=== PATIENT | female | born 1940 | race Caucasian/White ===

== ENCOUNTER 2018-08-09 22:56 | Inpatient (IN) | payer MEDICARE, OTHER ==
[2018-08-10] MEDS ORDERED: CYANOCOBALAMIN 500 MCG TAB PO (01:00)
[2018-08-10] MEDS: ACETYLCYSTEINE 20% 4 ML VIAL NEB ×3 (01:00→21:10)
[2018-08-10] MEDS ORDERED: DIGOXIN 0.125 MG TAB PO (01:00)
[2018-08-10] MEDS: ALPRAZOLAM 0.25 MG TAB PO ×2 (01:57→21:48)
[2018-08-10] MEDS: ACETAMINOPHEN 325 MG TAB PO ×2 (02:00→23:14)
[2018-08-10] MEDS: ALBUTEROL/IPRATROPIUM (NEB) 3 ML AMP HHN ×5 (03:35→21:10)
[2018-08-10] MEDS ORDERED: CEPASTAT LOZENGE MT (04:00)
[2018-08-10] MEDS ORDERED: MICONAZOLE 2% 30 GM CR TOP (04:00)
[2018-08-10] MEDS ORDERED: METOCLOPRAMIDE 10 MG INJ IV (04:00)
[2018-08-10] MEDS ORDERED: DIPHENHYDRAMINE 50 MG CAP PO (04:30)
[2018-08-10] MEDS ORDERED: DILTIAZEM 30 MG TAB PO ×2 (04:30→06:00)
[2018-08-10] MEDS: ARTIFICIAL TEARS 15 ML OPH BOTH EYES ×3 (06:39→20:14)
[2018-08-10] MEDS: PANTOPRAZOLE (EC) 40 MG TAB PO (06:40)
[2018-08-10] MEDS: INSULIN ASPART [NOVOLOG] 3 ML PEN SC ×4 (07:35→20:13)
[2018-08-10] MEDS ORDERED: DEXTROSE 50% 50 ML SYRINGE IV (08:00)
[2018-08-10] MEDS ORDERED: GLUCAGON 1 MG INJ IM (08:00)
[2018-08-10 08:02] LABS: ADD UMIC YES; UR ASCORBIC ACID 40 mg/dL (NEGATIVE); UR BACTERIA FEW /HPF (NONE SEEN); UR BILIRUBIN (Dip) NEGATIVE (NEGATIVE); UR BLOOD (Dip) NEGATIVE (NEGATIVE); UR CLARITY CLEAR (CLEAR); UR COLOR YELLOW (YELLOW); UR GLUCOSE (Dip) 1+ mg/dL (NEGATIVE); UR KETONES (Dip) NEGATIVE (NEGATIVE); UR LEUKOCYTE ESTERASE (Dip) TRACE Leu/ul (NEGATIVE); UR NITRITE (Dip) NEGATIVE (NEGATIVE); UR RBC 7 /HPF (0-5); UR SPECIFIC GRAVITY (Dip) 1.013 (1.003-1.030); UR SQUAMOUS EPITHELIAL CELL FEW /HPF (FEW); UR TOTAL PROTEIN (Dip) NEGATIVE (NEGATIVE); UR UROBILINOGEN (Dip) NEGATIVE (NEGATIVE); UR WBC 4 /HPF (0-5)
[2018-08-10] MEDS ORDERED: DOCUSATE SODIUM 100 MG CAP PO (09:00)
[2018-08-10] MEDS: MICONAZOLE 2% 30 GM CR TOP ×2 (09:00→22:29)
[2018-08-10] MEDS: LACTULOSE 30ML CUP PO (09:00)
[2018-08-10] MEDS ORDERED: DULOXETINE 20 MG CAP DR PO (09:00)
[2018-08-10] MEDS: ROFLUMILAST 500 MCG TABLET PO (09:00)
[2018-08-10] MEDS ORDERED: DILTIAZEM 90 MG TAB PO (09:00)
[2018-08-10] MEDS: CYANOCOBALAMIN 500 MCG TAB PO (09:00)
[2018-08-10 09:04] LABS: WHITE BLOOD COUNT 8.8 10^3/ul (4.8-10.8)
[2018-08-10 09:04] LABS: ABNORMAL IP MESSAGE 1; HEMATOCRIT 30.5 % (37.0-47.0); HEMOGLOBIN 10.4 g/dl (12.0-16.0); MEAN CORPUSCULAR HEMOGLOBIN 27.4 pg (29.0-33.0); MEAN CORPUSCULAR HGB CONC 34.1 g/dl (32.0-37.0); MEAN CORPUSCULAR VOLUME 80.5 fl (82.0-101.0); MEAN PLATELET VOLUME 9.5 fl (7.4-10.4); PLATELET COUNT 144 10^3/UL (140-415); RED BLOOD COUNT 3.79 10^6/ul (4.20-5.40); RED CELL DISTRIBUTION WIDTH 25.2 % (11.5-14.5)
[2018-08-10 09:11] LABS: ADD MAN DIFF? YES; POSITIVE DIFF @See below
[2018-08-10] MEDS: GLUCOSE GEL 15 GRAM TUBE PO (09:18)
[2018-08-10 09:29] LABS: ALANINE AMINOTRANSFERASE 48 IU/L (13-69); ALBUMIN/GLOBULIN RATIO 1.11; ALKALINE PHOSPHATASE 49 IU/L (42-121); ANION GAP 8 (5-13); ASPARTATE AMINO TRANSFERASE 24 IU/L (15-46); BILIRUBIN,INDIRECT 0.1 mg/dl (0-1.1); BILIRUBIN,TOTAL 0.1 mg/dl (0.2-1.3); BLOOD UREA NITROGEN 43 mg/dl (7-20); CALCIUM 9.5 mg/dl (8.4-10.2); CARBON DIOXIDE 29 mmol/L (21-31); CHLORIDE 96 mmol/L (97-110); CREATININE 0.96 mg/dl (0.44-1.00); POTASSIUM 4.4 mmol/L (3.5-5.1); SODIUM 133 mmol/L (135-144); TOTAL PROTEIN 5.7 g/dl (6.1-8.1)
[2018-08-10 09:36] LABS: GLUCOSE 49 mg/dl (70-220)
[2018-08-10 09:56] LABS: ANISOCYTOSIS 2+ (0-0); BAND NEUTROPHILS #M 0.3 10^3/ul (0.0-0.6); BAND NEUTROPHILS % (M) 4 % (0-4); BURR CELLS 1+ (0-0); ERYTHROBLAST% (NRBC) (M) 2 % (0-0); LYMPHOCYTES #M 1.2 10^3/ul (0.8-2.9); LYMPHOCYTES % (M) 14 % (15-51); METAMYELOCYTES %M 1 % (0-0); MICROCYTOSIS 2+ (0-0); MONOCYTE #M 0.2 10^3/ul (0.3-0.9); MONOCYTES % (M) 3 % (0-11); MYELOCYTES #M 0.2 10^3/ul (0.0-0.0); MYELOCYTES % (M) 3 % (0-0); PLATELET ESTIMATE NORMAL; POIKILOCYTOSIS 2+ (0-0); POLYCHROMASIA 1+ (0-0); REACTIVE LYMPHOCYTES #M 0.1 10^3/ul (0.0-0.0); REACTIVE LYMPHOCYTES% (M) 2 % (0-0); SEG NEUT #M 6.5 10^3/ul (1.6-7.5); SEGMENTED NEUTROPHILS (M) % 73 % (39-77); SMUDGE%M 8 % (0-0)
[2018-08-10] MEDS: METOPROLOL 25 MG TAB PO ×2 (11:44→20:19)
[2018-08-10] MEDS: PRIMIDONE 50 MG TAB PO ×3 (11:45→20:17)
[2018-08-10] MEDS: CHOLECALCIFEROL 1,000 UNIT TAB PO (11:45)
[2018-08-10] MEDS: DOCUSATE SODIUM 100 MG CAP PO ×2 (11:46→20:17)
[2018-08-10] MEDS: CHOLECALCIFEROL 2,000 UNIT CAP PO (11:46)
[2018-08-10] MEDS: GUAIFENESIN LA 600 MG TABSR PO ×2 (11:47→20:14)
[2018-08-10] MEDS: SACUBITRIL/VALSARTAN (24mg-26mg) TABLET PO ×2 (11:47→20:17)
[2018-08-10] MEDS: SPIRONOLACTONE 50 MG TAB PO (11:47)
[2018-08-10] MEDS: DULOXETINE 20 MG CAP DR PO ×2 (11:48→20:25)
[2018-08-10] MEDS: predniSONE 10 MG TAB PO (11:48)
[2018-08-10] MEDS: DIGOXIN 0.125 MG TAB PO (14:19)
[2018-08-10] MEDS: ACETYLCYSTEINE 600 MG CAP PO ×2 (14:22→20:17)
[2018-08-10] MEDS: RIVAROXABAN 15 MG TABLET PO (17:31)
[2018-08-10] MEDS: DILTIAZEM (CD) 180 MG CAP PO ×2 (17:31→21:48)
[2018-08-10] MEDS: INSULIN GLARGINE [LANTus] (100 UNITS/ML) SYG SC (20:11)
[2018-08-10] MEDS: ATORVASTATIN 10 MG TAB PO (20:31)
[2018-08-10] MEDS: DONEPEZIL 10 MG TAB PO (20:31)
[2018-08-10] MEDS: CALCIUM CARBONATE 500 MG CHEW TAB PO (20:31)
[2018-08-10] MEDS ORDERED: DONEPEZIL 10 MG TAB PO (21:00)
[2018-08-10] MEDS: ZOLPIDEM 5 MG TAB PO (23:13)
[2018-08-11] MEDS: ACCU-CHEK XX ×2 (02:13→02:14)
[2018-08-11] MEDS ORDERED: PENDING SANTYL ORDER FOR WOUND CARE XX (03:30)
[2018-08-11] MEDS: PANTOPRAZOLE (EC) 40 MG TAB PO (05:59)
[2018-08-11] MEDS: ARTIFICIAL TEARS 15 ML OPH BOTH EYES ×3 (05:59→21:14)
[2018-08-11] MEDS: INSULIN ASPART [NOVOLOG] 3 ML PEN SC ×4 (07:35→21:11)
[2018-08-11 08:01] LABS: FREE T3 0.99 pg/ml (2.77-5.27)
[2018-08-11 08:02] LABS: FREE T4 (FREE THYROXINE) < 0.07 ng/dl (0.78-2.44)
[2018-08-11] MEDS: ACETYLCYSTEINE 20% 4 ML VIAL NEB ×2 (08:45→19:48)
[2018-08-11] MEDS: ALBUTEROL/IPRATROPIUM (NEB) 3 ML AMP HHN ×4 (08:53→19:47)
[2018-08-11] MEDS: LACTULOSE 30ML CUP PO (09:00)
[2018-08-11] MEDS: DOCUSATE SODIUM 100 MG CAP PO ×2 (09:00→21:16)
[2018-08-11] MEDS: PRIMIDONE 50 MG TAB PO ×3 (09:43→21:15)
[2018-08-11] MEDS: ACETYLCYSTEINE 600 MG CAP PO ×2 (09:43→21:15)
[2018-08-11] MEDS: SACUBITRIL/VALSARTAN (24mg-26mg) TABLET PO ×2 (09:43→21:15)
[2018-08-11] MEDS: SODIUM CHLORIDE 1 GM TAB PO (09:43)
[2018-08-11] MEDS: GUAIFENESIN LA 600 MG TABSR PO ×2 (09:44→21:17)
[2018-08-11] MEDS: predniSONE 10 MG TAB PO (09:44)
[2018-08-11] MEDS: DILTIAZEM (CD) 180 MG CAP PO ×2 (09:44→21:16)
[2018-08-11] MEDS: DULOXETINE 20 MG CAP DR PO ×2 (09:45→21:15)
[2018-08-11] MEDS: CHOLECALCIFEROL 1,000 UNIT TAB PO (09:45)
[2018-08-11] MEDS: CHOLECALCIFEROL 2,000 UNIT CAP PO (09:45)
[2018-08-11] MEDS: ROFLUMILAST 500 MCG TABLET PO (09:46)
[2018-08-11] MEDS: METOPROLOL 25 MG TAB PO ×2 (09:47→21:16)
[2018-08-11] MEDS: SPIRONOLACTONE 50 MG TAB PO (09:47)
[2018-08-11] MEDS: MICONAZOLE 2% 30 GM CR TOP ×2 (09:49→21:17)
[2018-08-11] MEDS: DIGOXIN 0.125 MG TAB PO (14:17)
[2018-08-11] MEDS: RIVAROXABAN 15 MG TABLET PO (17:45)
[2018-08-11] MEDS: INSULIN GLARGINE [LANTus] (100 UNITS/ML) SYG SC (21:10)
[2018-08-11] MEDS: CALCIUM CARBONATE 500 MG CHEW TAB PO (21:14)
[2018-08-11] MEDS: ATORVASTATIN 10 MG TAB PO (21:14)
[2018-08-11] MEDS: DONEPEZIL 10 MG TAB PO (21:15)
[2018-08-11] MEDS: MELATONIN 3 MG TABLET PO (21:17)
[2018-08-11] MEDS: ALPRAZOLAM 0.25 MG TAB PO (22:47)
[2018-08-11] MEDS: morphine LIQ (10 MG/5 ML) CUP PO (23:49)
[2018-08-12] MEDS: ACCU-CHEK XX ×2 (02:00)
[2018-08-12] MEDS: ARTIFICIAL TEARS 15 ML OPH BOTH EYES ×3 (07:27→21:45)
[2018-08-12] MEDS: LEVOTHYROXINE 50 MCG TAB PO (07:28)
[2018-08-12] MEDS: PANTOPRAZOLE (EC) 40 MG TAB PO (07:28)
[2018-08-12] MEDS: INSULIN ASPART [NOVOLOG] 3 ML PEN SC ×4 (07:35→21:00)
[2018-08-12] MEDS: ACETYLCYSTEINE 20% 4 ML VIAL NEB ×2 (08:25→20:00)
[2018-08-12] MEDS: ALBUTEROL/IPRATROPIUM (NEB) 3 ML AMP HHN ×4 (08:26→20:00)
[2018-08-12] MEDS: DILTIAZEM (CD) 180 MG CAP PO ×2 (09:00→21:47)
[2018-08-12] MEDS: GLUCOSE GEL 15 GRAM TUBE BUCCAL (09:40)
[2018-08-12] MEDS: PRIMIDONE 50 MG TAB PO ×3 (09:43→21:46)
[2018-08-12] MEDS: ROFLUMILAST 500 MCG TABLET PO (09:44)
[2018-08-12] MEDS: DOCUSATE SODIUM 100 MG CAP PO ×2 (09:44→21:46)
[2018-08-12] MEDS: predniSONE 20 MG TAB PO (09:46)
[2018-08-12] MEDS: CHOLECALCIFEROL 2,000 UNIT CAP PO (09:47)
[2018-08-12] MEDS: CHOLECALCIFEROL 1,000 UNIT TAB PO (09:47)
[2018-08-12] MEDS: LACTULOSE 30ML CUP PO (09:49)
[2018-08-12] MEDS: GUAIFENESIN LA 600 MG TABSR PO ×2 (09:49→21:46)
[2018-08-12] MEDS: SACUBITRIL/VALSARTAN (24mg-26mg) TABLET PO ×2 (09:50→21:46)
[2018-08-12] MEDS: SPIRONOLACTONE 50 MG TAB PO (09:50)
[2018-08-12] MEDS: ACETYLCYSTEINE 600 MG CAP PO ×2 (09:51→21:46)
[2018-08-12] MEDS: MICONAZOLE 2% 30 GM CR TOP ×2 (09:53→22:03)
[2018-08-12] MEDS: METOPROLOL 25 MG TAB PO ×2 (09:57→21:47)
[2018-08-12] MEDS: DULOXETINE 20 MG CAP DR PO ×2 (09:58→21:46)
[2018-08-12] MEDS: CYANOCOBALAMIN 500 MCG TAB PO (11:15)
[2018-08-12] MEDS: morphine LIQ (10 MG/5 ML) CUP PO (13:08)
[2018-08-12] MEDS: DIGOXIN 0.125 MG TAB PO (13:10)
[2018-08-12] MEDS: FUROSEMIDE 20 MG INJ IV (15:35)
[2018-08-12] MEDS: RIVAROXABAN 15 MG TABLET PO (18:08)
[2018-08-12] MEDS: MELATONIN 3 MG TABLET PO (21:00)
[2018-08-12] MEDS: INSULIN GLARGINE [LANTus] (100 UNITS/ML) SYG SC (21:43)
[2018-08-12] MEDS: ATORVASTATIN 10 MG TAB PO (21:46)
[2018-08-12] MEDS: DONEPEZIL 10 MG TAB PO (21:46)
[2018-08-12] MEDS: CALCIUM CARBONATE 500 MG CHEW TAB PO (21:46)
[2018-08-12] MEDS: ALPRAZOLAM 0.25 MG TAB PO (22:01)
[2018-08-13] MEDS: ACCU-CHEK XX ×2 (02:00)
[2018-08-13] MEDS: morphine LIQ (10 MG/5 ML) CUP PO ×2 (04:18→20:27)
[2018-08-13] MEDS: LEVOTHYROXINE 50 MCG TAB PO (06:29)
[2018-08-13] MEDS: ARTIFICIAL TEARS 15 ML OPH BOTH EYES ×3 (06:29→21:52)
[2018-08-13] MEDS: PANTOPRAZOLE (EC) 40 MG TAB PO (06:29)
[2018-08-13 07:21] LABS: WHITE BLOOD COUNT 11.5 10^3/ul (4.8-10.8)
[2018-08-13 07:21] LABS: ABNORMAL IP MESSAGE 1; HEMATOCRIT 32.8 % (37.0-47.0); HEMOGLOBIN 10.5 g/dl (12.0-16.0); MEAN CORPUSCULAR HEMOGLOBIN 26.8 pg (29.0-33.0); MEAN CORPUSCULAR VOLUME 83.7 fl (82.0-101.0); MEAN PLATELET VOLUME 9.1 fl (7.4-10.4); PLATELET COUNT 134 10^3/UL (140-415); RED BLOOD COUNT 3.92 10^6/ul (4.20-5.40); RED CELL DISTRIBUTION WIDTH 25.4 % (11.5-14.5)
[2018-08-13 07:23] LABS: POSITIVE DIFF @See below
[2018-08-13 07:24] LABS: ADD MAN DIFF? YES
[2018-08-13] MEDS: INSULIN ASPART [NOVOLOG] 3 ML PEN SC ×4 (07:35→20:42)
[2018-08-13 07:43] LABS: ANION GAP 3 (5-13); BLOOD UREA NITROGEN 31 mg/dl (7-20); CALCIUM 8.5 mg/dl (8.4-10.2); CARBON DIOXIDE 32 mmol/L (21-31); CHLORIDE 101 mmol/L (97-110); CREATININE 0.79 mg/dl (0.44-1.00); POTASSIUM 5.2 mmol/L (3.5-5.1); SODIUM 136 mmol/L (135-144)
[2018-08-13 07:48] LABS: GLUCOSE 48 mg/dl (70-220)
[2018-08-13 07:55] LABS: MAGNESIUM 2.3 mg/dl (1.7-2.5)
[2018-08-13] MEDS: GLUCOSE GEL 15 GRAM TUBE PO (08:52)
[2018-08-13] MEDS: ACETYLCYSTEINE 20% 4 ML VIAL NEB (08:59)
[2018-08-13] MEDS: ALBUTEROL/IPRATROPIUM (NEB) 3 ML AMP HHN ×4 (08:59→20:40)
[2018-08-13] MEDS: SODIUM CHLORIDE 1 GM TAB PO (09:00)
[2018-08-13] MEDS: PRIMIDONE 50 MG TAB PO ×3 (09:00→22:48)
[2018-08-13] MEDS: DOCUSATE SODIUM 100 MG CAP PO ×2 (09:35→20:28)
[2018-08-13] MEDS: LACTULOSE 30ML CUP PO (09:35)
[2018-08-13] MEDS: DILTIAZEM (CD) 180 MG CAP PO ×2 (09:36→20:29)
[2018-08-13] MEDS: ACETYLCYSTEINE 600 MG CAP PO (09:36)
[2018-08-13] MEDS: METOPROLOL 25 MG TAB PO ×2 (09:36→20:30)
[2018-08-13] MEDS: CHOLECALCIFEROL 1,000 UNIT TAB PO (09:37)
[2018-08-13] MEDS: ROFLUMILAST 500 MCG TABLET PO (09:38)
[2018-08-13] MEDS: GUAIFENESIN LA 600 MG TABSR PO ×2 (09:38→20:28)
[2018-08-13] MEDS: SACUBITRIL/VALSARTAN (24mg-26mg) TABLET PO ×2 (09:39→20:27)
[2018-08-13] MEDS: DULOXETINE 20 MG CAP DR PO ×2 (09:39→20:28)
[2018-08-13] MEDS: SPIRONOLACTONE 50 MG TAB PO (09:39)
[2018-08-13] MEDS: predniSONE 20 MG TAB PO (09:39)
[2018-08-13] MEDS: CHOLECALCIFEROL 2,000 UNIT CAP PO (09:39)
[2018-08-13] MEDS: MICONAZOLE 2% 30 GM CR TOP ×2 (09:41→21:52)
[2018-08-13] MEDS: DEXTROSE 50% 50 ML SYRINGE IV (11:18)
[2018-08-13] MEDS: FUROSEMIDE 20 MG TAB PO (12:34)
[2018-08-13] MEDS: MUPIROCIN 2% 22 GM OINT TOP ×2 (12:35→21:51)
[2018-08-13] MEDS: DIGOXIN 0.125 MG TAB PO (12:35)
[2018-08-13] MEDS: METHYLPREDNISOLONE 40 MG INJ IV ×2 (16:30→22:48)
[2018-08-13 17:49] LABS: ADD UMIC NO; UR ASCORBIC ACID 40 mg/dL (NEGATIVE); UR BILIRUBIN (Dip) NEGATIVE (NEGATIVE); UR BLOOD (Dip) NEGATIVE (NEGATIVE); UR CLARITY CLEAR (CLEAR); UR COLOR YELLOW (YELLOW); UR GLUCOSE (Dip) NEGATIVE (NEGATIVE); UR KETONES (Dip) NEGATIVE (NEGATIVE); UR LEUKOCYTE ESTERASE (Dip) NEGATIVE Leu/ul (NEGATIVE); UR NITRITE (Dip) NEGATIVE (NEGATIVE); UR SPECIFIC GRAVITY (Dip) 1.011 (1.003-1.030); UR TOTAL PROTEIN (Dip) NEGATIVE (NEGATIVE); UR UROBILINOGEN (Dip) NEGATIVE (NEGATIVE)
[2018-08-13] MEDS: RIVAROXABAN 15 MG TABLET PO (17:50)
[2018-08-13] MEDS: AL HYDROX/MG HYDROX/SIMETH 30 ML CUP PO (18:25)
[2018-08-13] MEDS: CALCIUM CARBONATE 500 MG CHEW TAB PO (20:27)
[2018-08-13] MEDS: DONEPEZIL 10 MG TAB PO (20:28)
[2018-08-13] MEDS: MELATONIN 3 MG TABLET PO (20:28)
[2018-08-13] MEDS: ATORVASTATIN 10 MG TAB PO (20:29)
[2018-08-13] MEDS: INSULIN GLARGINE [LANTus] (100 UNITS/ML) SYG SC (20:42)
[2018-08-13] MEDS: ALPRAZOLAM 0.25 MG TAB PO (22:37)
[2018-08-14] MEDS: ACCU-CHEK XX ×2 (01:36→02:00)
[2018-08-14] MEDS: ARTIFICIAL TEARS 15 ML OPH BOTH EYES ×3 (06:34→22:19)
[2018-08-14] MEDS: METHYLPREDNISOLONE 40 MG INJ IV ×3 (06:34→22:19)
[2018-08-14] MEDS: LEVOTHYROXINE 50 MCG TAB PO (06:35)
[2018-08-14] MEDS: FUROSEMIDE 20 MG TAB PO (06:35)
[2018-08-14] MEDS: PANTOPRAZOLE (EC) 40 MG TAB PO (06:35)
[2018-08-14 06:41] LABS: ABNORMAL IP MESSAGE 1; HEMATOCRIT 31.8 % (37.0-47.0); HEMOGLOBIN 10.3 g/dl (12.0-16.0); MEAN CORPUSCULAR HGB CONC 32.4 g/dl (32.0-37.0); MEAN CORPUSCULAR VOLUME 83.5 fl (82.0-101.0); MEAN PLATELET VOLUME 9.6 fl (7.4-10.4); PLATELET COUNT 143 10^3/UL (140-415); RED BLOOD COUNT 3.81 10^6/ul (4.20-5.40); RED CELL DISTRIBUTION WIDTH 25.5 % (11.5-14.5)
[2018-08-14 06:41] LABS: WHITE BLOOD COUNT 10.9 10^3/ul (4.8-10.8)
[2018-08-14 06:44] LABS: ADD MAN DIFF? YES; POSITIVE DIFF @See below
[2018-08-14 07:25] LABS: ANION GAP 5 (5-13); BLOOD UREA NITROGEN 33 mg/dl (7-20); CALCIUM 8.4 mg/dl (8.4-10.2); CARBON DIOXIDE 30 mmol/L (21-31); CHLORIDE 100 mmol/L (97-110); CREATININE 1.06 mg/dl (0.44-1.00); GLUCOSE 111 mg/dl (70-220); POTASSIUM 5.4 mmol/L (3.5-5.1); SODIUM 135 mmol/L (135-144)
[2018-08-14] MEDS: INSULIN ASPART [NOVOLOG] 3 ML PEN SC ×4 (07:35→20:50)
[2018-08-14 07:55] LABS: ANISOCYTOSIS 2+ (0-0); BAND NEUTROPHILS #M 1.7 10^3/ul (0.0-0.6); BAND NEUTROPHILS % (M) 16 % (0-4); BURR CELLS 1+ (0-0); ELLIPTO 1+ (0-0); METAMYELOCYTES #M 0.2 10^3/ul (0.0-0.0); METAMYELOCYTES %M 2 % (0-0); MICROCYTOSIS 2+ (0-0); MYELOCYTES #M 0.2 10^3/ul (0.0-0.0); MYELOCYTES % (M) 2 % (0-0); OVALOCYTES 1+ (0-0); PLATELET ESTIMATE NORMAL; POIKILOCYTOSIS 1+ (0-0); POLYCHROMASIA 3+ (0-0); PROMYELOCYTES #M 0.1 10^3/ul (0-0); PROMYELOCYTES % (M) 1 % (0-0); SEG NEUT #M 8.8 10^3/ul (1.6-7.5); SEGMENTED NEUTROPHILS (M) % 79 % (39-77); SMUDGE%M 5 % (0-0); TARGET CELLS 1+ (0-0)
[2018-08-14] MEDS: ALBUTEROL/IPRATROPIUM (NEB) 3 ML AMP HHN ×4 (08:52→20:39)
[2018-08-14] MEDS: LACTULOSE 30ML CUP PO (09:00)
[2018-08-14] MEDS: METOPROLOL 25 MG TAB PO ×2 (09:00→20:19)
[2018-08-14] MEDS: DILTIAZEM (CD) 180 MG CAP PO ×2 (09:00→20:19)
[2018-08-14] MEDS: ROFLUMILAST 500 MCG TABLET PO (10:09)
[2018-08-14] MEDS: DOCUSATE SODIUM 100 MG CAP PO ×2 (10:09→20:17)
[2018-08-14] MEDS: GUAIFENESIN LA 600 MG TABSR PO ×2 (10:09→20:54)
[2018-08-14] MEDS: CHOLECALCIFEROL 2,000 UNIT CAP PO (10:10)
[2018-08-14] MEDS: DULOXETINE 20 MG CAP DR PO ×2 (10:10→20:18)
[2018-08-14] MEDS: SACUBITRIL/VALSARTAN (24mg-26mg) TABLET PO ×2 (10:10→20:19)
[2018-08-14] MEDS: CHOLECALCIFEROL 1,000 UNIT TAB PO (10:10)
[2018-08-14] MEDS: MUPIROCIN 2% 22 GM OINT TOP ×2 (10:13→20:51)
[2018-08-14] MEDS: MICONAZOLE 2% 30 GM CR TOP ×2 (10:14→20:51)
[2018-08-14] MEDS: PRIMIDONE 50 MG TAB PO ×3 (10:19→20:20)
[2018-08-14] MEDS: CYANOCOBALAMIN 500 MCG TAB PO (10:20)
[2018-08-14] MEDS: DIGOXIN 0.125 MG TAB PO (14:04)
[2018-08-14] MEDS: NA POLYST SULFON 15 GM/60 ML BTL PO (14:06)
[2018-08-14] MEDS: SOD CHLORIDE 0.45% 1,000 ML IV (14:39)
[2018-08-14] MEDS: RIVAROXABAN 15 MG TABLET PO (17:27)
[2018-08-14] MEDS: DONEPEZIL 10 MG TAB PO (20:18)
[2018-08-14] MEDS: ATORVASTATIN 10 MG TAB PO (20:18)
[2018-08-14] MEDS: CALCIUM CARBONATE 500 MG CHEW TAB PO (20:18)
[2018-08-14] MEDS: INSULIN GLARGINE [LANTus] (100 UNITS/ML) SYG SC (20:32)
[2018-08-14] MEDS: ALPRAZOLAM 0.25 MG TAB PO (22:17)
[2018-08-14] MEDS: MELATONIN 3 MG TABLET PO (22:17)
[2018-08-15] MEDS: DIPHENHYDRAMINE 50 MG CAP PO (01:31)
[2018-08-15] MEDS: ACCU-CHEK XX ×2 (02:00)
[2018-08-15] MEDS: ARTIFICIAL TEARS 15 ML OPH BOTH EYES ×3 (06:37→21:31)
[2018-08-15] MEDS: METHYLPREDNISOLONE 40 MG INJ IV ×3 (06:38→22:52)
[2018-08-15] MEDS: PANTOPRAZOLE (EC) 40 MG TAB PO (06:38)
[2018-08-15] MEDS: LEVOTHYROXINE 50 MCG TAB PO (06:38)
[2018-08-15] MEDS: FUROSEMIDE 20 MG TAB PO (06:40)
[2018-08-15] MEDS: INSULIN ASPART [NOVOLOG] 3 ML PEN SC ×4 (07:35→21:26)
[2018-08-15] MEDS: ALBUTEROL/IPRATROPIUM (NEB) 3 ML AMP HHN ×5 (08:32→19:50)
[2018-08-15 08:34] LABS: WHITE BLOOD COUNT 10.6 10^3/ul (4.8-10.8)
[2018-08-15 08:34] LABS: ABNORMAL IP MESSAGE 1; HEMATOCRIT 32.9 % (37.0-47.0); HEMOGLOBIN 10.6 g/dl (12.0-16.0); MEAN CORPUSCULAR HEMOGLOBIN 27.1 pg (29.0-33.0); MEAN CORPUSCULAR HGB CONC 32.2 g/dl (32.0-37.0); MEAN CORPUSCULAR VOLUME 84.1 fl (82.0-101.0); MEAN PLATELET VOLUME 10.1 fl (7.4-10.4); PLATELET COUNT 184 10^3/UL (140-415); RED BLOOD COUNT 3.91 10^6/ul (4.20-5.40); RED CELL DISTRIBUTION WIDTH 25.4 % (11.5-14.5)
[2018-08-15 08:35] LABS: ADD MAN DIFF? YES; POSITIVE DIFF @See below
[2018-08-15 08:57] LABS: ANION GAP 7 (5-13); BLOOD UREA NITROGEN 40 mg/dl (7-20); CALCIUM 7.9 mg/dl (8.4-10.2); CARBON DIOXIDE 31 mmol/L (21-31); CHLORIDE 96 mmol/L (97-110); CREATININE 1.06 mg/dl (0.44-1.00); GLUCOSE 100 mg/dl (70-220); POTASSIUM 4.3 mmol/L (3.5-5.1); SODIUM 134 mmol/L (135-144)
[2018-08-15] MEDS: CHOLECALCIFEROL 2,000 UNIT CAP PO (09:35)
[2018-08-15] MEDS: CHOLECALCIFEROL 1,000 UNIT TAB PO (09:35)
[2018-08-15] MEDS: DILTIAZEM (CD) 180 MG CAP PO ×2 (09:35→21:20)
[2018-08-15] MEDS: DULOXETINE 20 MG CAP DR PO ×2 (09:36→21:19)
[2018-08-15] MEDS: DOCUSATE SODIUM 100 MG CAP PO ×2 (09:36→21:19)
[2018-08-15] MEDS: SACUBITRIL/VALSARTAN (24mg-26mg) TABLET PO ×2 (09:36→21:19)
[2018-08-15] MEDS: ROFLUMILAST 500 MCG TABLET PO (09:36)
[2018-08-15] MEDS: METOPROLOL 25 MG TAB PO ×2 (09:36→21:22)
[2018-08-15] MEDS: GUAIFENESIN LA 600 MG TABSR PO ×2 (09:37→21:19)
[2018-08-15] MEDS: PRIMIDONE 50 MG TAB PO ×3 (09:37→21:19)
[2018-08-15] MEDS: LACTULOSE 30ML CUP PO (09:37)
[2018-08-15] MEDS: MICONAZOLE 2% 30 GM CR TOP ×2 (09:39→21:26)
[2018-08-15] MEDS: MUPIROCIN 2% 22 GM OINT TOP ×2 (09:40→21:26)
[2018-08-15 10:53] LABS: ANISOCYTOSIS 3+ (0-0); BAND NEUTROPHILS #M 1.4 10^3/ul (0.0-0.6); BAND NEUTROPHILS % (M) 14 % (0-4); ERYTHROBLAST% (NRBC) (M) 1 % (0-0); LYMPHOCYTES #M 0.2 10^3/ul (0.8-2.9); LYMPHOCYTES % (M) 2 % (15-51); METAMYELOCYTES #M 0.1 10^3/ul (0.0-0.0); METAMYELOCYTES %M 1 % (0-0); MICROCYTOSIS 3+ (0-0); MONOCYTE #M 0.3 10^3/ul (0.3-0.9); MONOCYTES % (M) 3 % (0-11); MYELOCYTES #M 0.1 10^3/ul (0.0-0.0); MYELOCYTES % (M) 1 % (0-0); PLATELET ESTIMATE NORMAL; POIKILOCYTOSIS 3+ (0-0); POLYCHROMASIA 3+ (0-0); REACTIVE LYMPHOCYTES #M 0.2 10^3/ul (0.0-0.0); REACTIVE LYMPHOCYTES% (M) 2 % (0-0); SEG NEUT #M 8.3 10^3/ul (1.6-7.5); SEGMENTED NEUTROPHILS (M) % 77 % (39-77); SMUDGE%M 3 % (0-0)
[2018-08-15] MEDS: SOD CHLORIDE 0.45% 1,000 ML IV (12:31)
[2018-08-15] MEDS: FUROSEMIDE 20 MG INJ IV (12:34)
[2018-08-15] MEDS: DIGOXIN 0.125 MG TAB PO (12:35)
[2018-08-15] MEDS: RIVAROXABAN 15 MG TABLET PO (17:38)
[2018-08-15] MEDS: MELATONIN 3 MG TABLET PO (21:00)
[2018-08-15] MEDS: CALCIUM CARBONATE 500 MG CHEW TAB PO (21:18)
[2018-08-15] MEDS: ATORVASTATIN 10 MG TAB PO (21:18)
[2018-08-15] MEDS: DONEPEZIL 10 MG TAB PO (21:19)
[2018-08-15] MEDS: morphine LIQ (10 MG/5 ML) CUP PO (21:20)
[2018-08-15] MEDS: INSULIN GLARGINE [LANTus] (100 UNITS/ML) SYG SC (21:25)
[2018-08-15] MEDS: ALPRAZOLAM 0.25 MG TAB PO (22:52)
[2018-08-16] MEDS: ACCU-CHEK XX ×2 (02:00)
[2018-08-16] MEDS: DIPHENHYDRAMINE 50 MG CAP PO (04:15)
[2018-08-16] MEDS: morphine LIQ (10 MG/5 ML) CUP PO ×2 (04:15→19:44)
[2018-08-16] MEDS: SOD CHLORIDE 0.45% 1,000 ML IV (05:09)
[2018-08-16] MEDS: METHYLPREDNISOLONE 40 MG INJ IV ×3 (06:40→22:14)
[2018-08-16] MEDS: ARTIFICIAL TEARS 15 ML OPH BOTH EYES ×3 (06:40→22:17)
[2018-08-16] MEDS: PANTOPRAZOLE (EC) 40 MG TAB PO (06:40)
[2018-08-16] MEDS: LEVOTHYROXINE 50 MCG TAB PO (06:40)
[2018-08-16] MEDS: FUROSEMIDE 20 MG TAB PO (06:47)
[2018-08-16] MEDS: INSULIN ASPART [NOVOLOG] 3 ML PEN SC ×2 (07:35→12:00)
[2018-08-16] MEDS: ALBUTEROL/IPRATROPIUM (NEB) 3 ML AMP HHN ×4 (07:54→20:09)
[2018-08-16 08:55] LABS: ADD MAN DIFF? NO
[2018-08-16] MEDS: LACTULOSE 30ML CUP PO (08:59)
[2018-08-16] MEDS: GUAIFENESIN LA 600 MG TABSR PO ×2 (08:59→22:15)
[2018-08-16] MEDS: SODIUM CHLORIDE 1 GM TAB PO (09:00)
[2018-08-16] MEDS: METOPROLOL 25 MG TAB PO ×2 (09:00→22:16)
[2018-08-16] MEDS: CHOLECALCIFEROL 2,000 UNIT CAP PO (09:00)
[2018-08-16] MEDS: DULOXETINE 20 MG CAP DR PO ×2 (09:01→22:14)
[2018-08-16] MEDS: CYANOCOBALAMIN 500 MCG TAB PO (09:01)
[2018-08-16] MEDS: PRIMIDONE 50 MG TAB PO ×3 (09:01→22:15)
[2018-08-16] MEDS: CHOLECALCIFEROL 1,000 UNIT TAB PO (09:01)
[2018-08-16] MEDS: DOCUSATE SODIUM 100 MG CAP PO ×2 (09:01→22:16)
[2018-08-16] MEDS: SACUBITRIL/VALSARTAN (24mg-26mg) TABLET PO ×2 (09:02→22:15)
[2018-08-16] MEDS: ROFLUMILAST 500 MCG TABLET PO (09:02)
[2018-08-16] MEDS: DILTIAZEM (CD) 180 MG CAP PO ×2 (09:02→22:15)
[2018-08-16] MEDS: MUPIROCIN 2% 22 GM OINT TOP ×2 (09:03→22:17)
[2018-08-16] MEDS: MICONAZOLE 2% 30 GM CR TOP ×2 (09:03→22:17)
[2018-08-16 09:04] LABS: ABNORMAL IP MESSAGE 1; BASOPHIL # 0.1 10^3/ul (0.0-0.1); BASOPHILS % 0.5 % (0.0-2.0); HEMATOCRIT 34.5 % (37.0-47.0); HEMOGLOBIN 11.1 g/dl (12.0-16.0); LYMPHOCYTES # 0.5 10^3/ul (0.8-2.9); LYMPHOCYTES % 5.2 % (15.0-51.0); MEAN CORPUSCULAR HEMOGLOBIN 26.8 pg (29.0-33.0); MEAN CORPUSCULAR HGB CONC 32.2 g/dl (32.0-37.0); MEAN CORPUSCULAR VOLUME 83.3 fl (82.0-101.0); MEAN PLATELET VOLUME 9.2 fl (7.4-10.4); MONOCYTE # 0.3 10^3/ul (0.3-0.9); MONOCYTES % 3.1 % (0.0-11.0); NEUTROPHIL # 8.1 10^3/ul (1.6-7.5); NEUTROPHILS % 83.3 % (39.0-77.0); PLATELET COUNT 149 10^3/UL (140-415); POSITIVE DIFF @See below; RED BLOOD COUNT 4.14 10^6/ul (4.20-5.40); RED CELL DISTRIBUTION WIDTH 25.4 % (11.5-14.5)
[2018-08-16 09:04] LABS: WHITE BLOOD COUNT 9.7 10^3/ul (4.8-10.8)
[2018-08-16 09:20] LABS: ANION GAP 7 (5-13); BLOOD UREA NITROGEN 37 mg/dl (7-20); CALCIUM 7.6 mg/dl (8.4-10.2); CARBON DIOXIDE 29 mmol/L (21-31); CHLORIDE 98 mmol/L (97-110); GLUCOSE 122 mg/dl (70-220); POTASSIUM 4.2 mmol/L (3.5-5.1); SODIUM 134 mmol/L (135-144)
[2018-08-16 09:59] LABS: ANISOCYTOSIS 3+ (0-0); BAND NEUTROPHILS #M 0.7 10^3/ul (0.0-0.6); BAND NEUTROPHILS % (M) 8 % (0-4); BURR CELLS 1+ (0-0); GIANT THROMBO% (M) 1 % (0-0); LYMPHOCYTES #M 0.5 10^3/ul (0.8-2.9); LYMPHOCYTES % (M) 6 % (15-51); METAMYELOCYTES %M 1 % (0-0); MICROCYTOSIS 3+ (0-0); MYELOCYTES #M 0.2 10^3/ul (0.0-0.0); MYELOCYTES % (M) 3 % (0-0); OVALOCYTES 1+ (0-0); PLATELET ESTIMATE NORMAL; POIKILOCYTOSIS 2+ (0-0); POLYCHROMASIA 2+ (0-0); PROMYELOCYTES #M 0.1 10^3/ul (0-0); PROMYELOCYTES % (M) 2 % (0-0); SEG NEUT #M 7.8 10^3/ul (1.6-7.5); SEGMENTED NEUTROPHILS (M) % 80 % (39-77); SMUDGE%M 1 % (0-0); TARGET CELLS 1+ (0-0)
[2018-08-16 10:00] LABS: B-TYPE NATRIURETIC PEPTIDE 1100 PG/ML (0-450)
[2018-08-16] MEDS: DIGOXIN 0.125 MG TAB PO (12:38)
[2018-08-16] MEDS: RIVAROXABAN 15 MG TABLET PO (17:28)
[2018-08-16] MEDS: metFORMIN 500 MG TAB PO (17:28)
[2018-08-16] MEDS: MELATONIN 3 MG TABLET PO (22:13)
[2018-08-16] MEDS: ALPRAZOLAM 0.25 MG TAB PO (22:14)
[2018-08-16] MEDS: DONEPEZIL 10 MG TAB PO (22:15)
[2018-08-16] MEDS: ATORVASTATIN 10 MG TAB PO (22:15)
[2018-08-16] MEDS: CALCIUM CARBONATE 500 MG CHEW TAB PO (22:15)
[2018-08-17] MEDS: morphine LIQ (10 MG/5 ML) CUP PO ×3 (00:46→22:46)
[2018-08-17] MEDS: DIPHENHYDRAMINE 50 MG CAP PO (00:46)
[2018-08-17] MEDS: LEVOTHYROXINE 50 MCG TAB PO (06:42)
[2018-08-17] MEDS: PANTOPRAZOLE (EC) 40 MG TAB PO (06:42)
[2018-08-17] MEDS: METHYLPREDNISOLONE 40 MG INJ IV ×3 (06:42→22:09)
[2018-08-17] MEDS: ARTIFICIAL TEARS 15 ML OPH BOTH EYES ×3 (06:43→22:06)
[2018-08-17] MEDS: FUROSEMIDE 20 MG TAB PO (06:43)
[2018-08-17] MEDS: DILTIAZEM (CD) 180 MG CAP PO ×2 (09:00→20:50)
[2018-08-17] MEDS: METOPROLOL 25 MG TAB PO ×2 (09:00→20:51)
[2018-08-17] MEDS ORDERED: predniSONE 10 MG TAB PO (09:00)
[2018-08-17] MEDS: ALBUTEROL/IPRATROPIUM (NEB) 3 ML AMP HHN ×4 (09:00→21:07)
[2018-08-17] MEDS: metFORMIN 500 MG TAB PO ×2 (09:10→17:39)
[2018-08-17] MEDS: LACTULOSE 30ML CUP PO (09:11)
[2018-08-17] MEDS: CHOLECALCIFEROL 1,000 UNIT TAB PO (09:11)
[2018-08-17] MEDS: CHOLECALCIFEROL 2,000 UNIT CAP PO (09:11)
[2018-08-17] MEDS: DOCUSATE SODIUM 100 MG CAP PO ×2 (09:11→20:52)
[2018-08-17] MEDS: ROFLUMILAST 500 MCG TABLET PO (09:12)
[2018-08-17] MEDS: PRIMIDONE 50 MG TAB PO ×3 (09:12→20:50)
[2018-08-17] MEDS: SACUBITRIL/VALSARTAN (24mg-26mg) TABLET PO ×2 (09:12→21:09)
[2018-08-17] MEDS: LINAGLIPTIN 5 MG TABLET PO (09:12)
[2018-08-17] MEDS: MICONAZOLE 2% 30 GM CR TOP ×2 (09:16→20:51)
[2018-08-17] MEDS: MUPIROCIN 2% 22 GM OINT TOP ×2 (09:16→20:53)
[2018-08-17] MEDS: GUAIFENESIN LA 600 MG TABSR PO ×2 (12:47→20:50)
[2018-08-17] MEDS: DULOXETINE 20 MG CAP DR PO ×2 (12:47→20:49)
[2018-08-17] MEDS: DIGOXIN 0.125 MG TAB PO (12:48)
[2018-08-17] MEDS: AL HYDROX/MG HYDROX/SIMETH 30 ML CUP PO (13:03)
[2018-08-17] MEDS: RIVAROXABAN 15 MG TABLET PO (17:39)
[2018-08-17] MEDS: ATORVASTATIN 10 MG TAB PO (20:50)
[2018-08-17] MEDS: DONEPEZIL 10 MG TAB PO (20:50)
[2018-08-17] MEDS: MELATONIN 3 MG TABLET PO (20:51)
[2018-08-17] MEDS: CALCIUM CARBONATE 500 MG CHEW TAB PO (20:51)
[2018-08-17] MEDS: ALPRAZOLAM 0.25 MG TAB PO (21:43)
[2018-08-18] MEDS: PANTOPRAZOLE (EC) 40 MG TAB PO (06:07)
[2018-08-18] MEDS: METHYLPREDNISOLONE 40 MG INJ IV ×3 (06:07→21:24)
[2018-08-18] MEDS: ARTIFICIAL TEARS 15 ML OPH BOTH EYES ×3 (06:08→21:24)
[2018-08-18] MEDS: LEVOTHYROXINE 50 MCG TAB PO (06:08)
[2018-08-18] MEDS: FUROSEMIDE 20 MG TAB PO (06:08)
[2018-08-18] MEDS: metFORMIN 500 MG TAB PO ×2 (08:27→17:54)
[2018-08-18] MEDS: LINAGLIPTIN 5 MG TABLET PO (08:27)
[2018-08-18] MEDS: GUAIFENESIN LA 600 MG TABSR PO ×2 (08:28→20:41)
[2018-08-18] MEDS: DOCUSATE SODIUM 100 MG CAP PO ×2 (08:28→20:41)
[2018-08-18] MEDS: CYANOCOBALAMIN 500 MCG TAB PO (08:28)
[2018-08-18] MEDS: LACTULOSE 30ML CUP PO (08:59)
[2018-08-18] MEDS: CHOLECALCIFEROL 1,000 UNIT TAB PO (08:59)
[2018-08-18] MEDS: ROFLUMILAST 500 MCG TABLET PO (09:00)
[2018-08-18] MEDS: METOPROLOL 25 MG TAB PO ×2 (09:00→20:43)
[2018-08-18] MEDS: CHOLECALCIFEROL 2,000 UNIT CAP PO (09:00)
[2018-08-18] MEDS: PRIMIDONE 50 MG TAB PO ×3 (09:00→20:41)
[2018-08-18] MEDS: DILTIAZEM (CD) 180 MG CAP PO ×2 (09:00→20:42)
[2018-08-18] MEDS: DULOXETINE 20 MG CAP DR PO ×2 (09:00→20:41)
[2018-08-18] MEDS: ALBUTEROL/IPRATROPIUM (NEB) 3 ML AMP HHN ×4 (09:00→20:25)
[2018-08-18] MEDS: SACUBITRIL/VALSARTAN (24mg-26mg) TABLET PO ×2 (09:01→20:41)
[2018-08-18] MEDS: MICONAZOLE 2% 30 GM CR TOP ×2 (09:09→20:44)
[2018-08-18] MEDS: MUPIROCIN 2% 22 GM OINT TOP ×2 (09:09→20:44)
[2018-08-18] MEDS: SODIUM CHLORIDE 1 GM TAB PO (09:17)
[2018-08-18] MEDS: DIGOXIN 0.125 MG TAB PO (13:31)
[2018-08-18] MEDS ORDERED: LEVOFLOXACIN 250MG/D5W (PMX) 50 ML IVPB (14:00)
[2018-08-18] MEDS: RIVAROXABAN 15 MG TABLET PO (17:54)
[2018-08-18] MEDS: AL HYDROX/MG HYDROX/SIMETH 30 ML CUP PO (18:31)
[2018-08-18] MEDS: CEFEPIME 1GM/50 ML (PMX) 50 ML IVPB (20:30)
[2018-08-18] MEDS: ATORVASTATIN 10 MG TAB PO (20:41)
[2018-08-18] MEDS: DONEPEZIL 10 MG TAB PO (20:41)
[2018-08-18] MEDS: CALCIUM CARBONATE 500 MG CHEW TAB PO (20:41)
[2018-08-18] MEDS: MELATONIN 3 MG TABLET PO (20:42)
[2018-08-18] MEDS: ALPRAZOLAM 0.25 MG TAB PO (21:47)
[2018-08-19] MEDS: morphine LIQ (10 MG/5 ML) CUP PO (01:59)
[2018-08-19] MEDS: PANTOPRAZOLE (EC) 40 MG TAB PO (05:39)
[2018-08-19] MEDS: ARTIFICIAL TEARS 15 ML OPH BOTH EYES ×3 (05:39→22:15)
[2018-08-19] MEDS: LEVOTHYROXINE 50 MCG TAB PO (05:39)
[2018-08-19] MEDS: METHYLPREDNISOLONE 40 MG INJ IV ×3 (05:40→22:16)
[2018-08-19] MEDS: FUROSEMIDE 20 MG TAB PO (05:42)
[2018-08-19 07:43] LABS: ABNORMAL IP MESSAGE 1; HEMATOCRIT 29.3 % (37.0-47.0); HEMOGLOBIN 9.7 g/dl (12.0-16.0); MEAN CORPUSCULAR HEMOGLOBIN 27.8 pg (29.0-33.0); MEAN CORPUSCULAR HGB CONC 33.1 g/dl (32.0-37.0); MEAN PLATELET VOLUME 9.2 fl (7.4-10.4); PLATELET COUNT 148 10^3/UL (140-415); RED BLOOD COUNT 3.49 10^6/ul (4.20-5.40); RED CELL DISTRIBUTION WIDTH 25.7 % (11.5-14.5)
[2018-08-19 07:44] LABS: ADD MAN DIFF? YES; POSITIVE DIFF @See below
[2018-08-19 07:50] LABS: ANION GAP 8 (5-13); BLOOD UREA NITROGEN 38 mg/dl (7-20); CALCIUM 8.8 mg/dl (8.4-10.2); CARBON DIOXIDE 31 mmol/L (21-31); CHLORIDE 99 mmol/L (97-110); CREATININE 0.89 mg/dl (0.44-1.00); GLUCOSE 116 mg/dl (70-220); POTASSIUM 4.6 mmol/L (3.5-5.1); SODIUM 138 mmol/L (135-144)
[2018-08-19] MEDS: metFORMIN 500 MG TAB PO ×2 (07:58→17:36)
[2018-08-19] MEDS: LINAGLIPTIN 5 MG TABLET PO (07:58)
[2018-08-19] MEDS: ALBUTEROL/IPRATROPIUM (NEB) 3 ML AMP HHN ×5 (08:10→21:31)
[2018-08-19] MEDS: LACTULOSE 30ML CUP PO (08:39)
[2018-08-19] MEDS: CHOLECALCIFEROL 1,000 UNIT TAB PO (08:40)
[2018-08-19] MEDS: PRIMIDONE 50 MG TAB PO ×3 (08:40→20:21)
[2018-08-19] MEDS: SACUBITRIL/VALSARTAN (24mg-26mg) TABLET PO ×2 (08:40→20:20)
[2018-08-19] MEDS: DOCUSATE SODIUM 100 MG CAP PO ×2 (08:40→20:20)
[2018-08-19] MEDS: ROFLUMILAST 500 MCG TABLET PO (08:40)
[2018-08-19] MEDS: DULOXETINE 20 MG CAP DR PO ×2 (08:40→20:21)
[2018-08-19] MEDS: GUAIFENESIN LA 600 MG TABSR PO ×2 (08:41→20:19)
[2018-08-19] MEDS: CHOLECALCIFEROL 2,000 UNIT CAP PO (08:41)
[2018-08-19] MEDS: DILTIAZEM (CD) 180 MG CAP PO ×2 (08:42→20:20)
[2018-08-19] MEDS: MUPIROCIN 2% 22 GM OINT TOP (08:42)
[2018-08-19] MEDS: METOPROLOL 25 MG TAB PO ×2 (08:42→20:20)
[2018-08-19] MEDS: MICONAZOLE 2% 30 GM CR TOP ×2 (08:43→22:20)
[2018-08-19] MEDS: CEFEPIME 1GM/50 ML (PMX) 50 ML IVPB ×2 (09:13→20:37)
[2018-08-19 09:17] LABS: ANISOCYTOSIS 3+ (0-0); BAND NEUTROPHILS #M 1.8 10^3/ul (0.0-0.6); BAND NEUTROPHILS % (M) 20 % (0-4); ERYTHROBLAST% (NRBC) (M) 1 % (0-0); LYMPHOCYTES % (M) 1 % (15-51); MICROCYTOSIS 3+ (0-0); MONOCYTE #M 0.6 10^3/ul (0.3-0.9); MONOCYTES % (M) 7 % (0-11); OVALOCYTES 1+ (0-0); PLATELET ESTIMATE NORMAL; POIKILOCYTOSIS 2+ (0-0); POLYCHROMASIA 3+ (0-0); REACTIVE LYMPHOCYTES% (M) 1 % (0-0); SEG NEUT #M 6.6 10^3/ul (1.6-7.5); SEGMENTED NEUTROPHILS (M) % 71 % (39-77); SMUDGE%M 6 % (0-0); SPHEROCYTES 1+ (0-0)
[2018-08-19] MEDS: DIGOXIN 0.125 MG TAB PO (12:11)
[2018-08-19] MEDS: FUROSEMIDE 20 MG INJ IV (13:33)
[2018-08-19] MEDS: RIVAROXABAN 15 MG TABLET PO (17:35)
[2018-08-19] MEDS: ATORVASTATIN 10 MG TAB PO (20:19)
[2018-08-19] MEDS: CALCIUM CARBONATE 500 MG CHEW TAB PO (20:20)
[2018-08-19] MEDS: DONEPEZIL 10 MG TAB PO (20:20)
[2018-08-19] MEDS: MELATONIN 3 MG TABLET PO (20:20)
[2018-08-19] MEDS: ALPRAZOLAM 0.25 MG TAB PO (22:14)
[2018-08-20] MEDS: morphine LIQ (10 MG/5 ML) CUP PO (00:43)
[2018-08-20] MEDS: PANTOPRAZOLE (EC) 40 MG TAB PO (06:40)
[2018-08-20] MEDS: ARTIFICIAL TEARS 15 ML OPH BOTH EYES ×3 (06:40→21:50)
[2018-08-20] MEDS: LEVOTHYROXINE 50 MCG TAB PO (06:41)
[2018-08-20] MEDS: metFORMIN 500 MG TAB PO ×2 (08:23→18:06)
[2018-08-20] MEDS: LINAGLIPTIN 5 MG TABLET PO (08:24)
[2018-08-20 08:55] LABS: ABNORMAL IP MESSAGE 1; HEMATOCRIT 33.1 % (37.0-47.0); HEMOGLOBIN 10.7 g/dl (12.0-16.0); MEAN CORPUSCULAR HEMOGLOBIN 27.5 pg (29.0-33.0); MEAN CORPUSCULAR HGB CONC 32.3 g/dl (32.0-37.0); MEAN CORPUSCULAR VOLUME 85.1 fl (82.0-101.0); NUCLEATED RED BLOOD CELLS% 0.3 /100WBC (0.0-0.0); PLATELET COUNT 191 10^3/UL (140-415); RED BLOOD COUNT 3.89 10^6/ul (4.20-5.40); RED CELL DISTRIBUTION WIDTH 25.9 % (11.5-14.5)
[2018-08-20 08:55] LABS: WHITE BLOOD COUNT 11.7 10^3/ul (4.8-10.8)
[2018-08-20 08:59] LABS: ADD MAN DIFF? YES; POSITIVE DIFF @See below
[2018-08-20 09:15] LABS: ANION GAP 9 (5-13); BLOOD UREA NITROGEN 43 mg/dl (7-20); CALCIUM 9.1 mg/dl (8.4-10.2); CARBON DIOXIDE 29 mmol/L (21-31); CHLORIDE 100 mmol/L (97-110); CREATININE 0.97 mg/dl (0.44-1.00); GLUCOSE 129 mg/dl (70-220); MAGNESIUM 2.6 mg/dl (1.7-2.5); POTASSIUM 4.9 mmol/L (3.5-5.1); SODIUM 138 mmol/L (135-144)
[2018-08-20] MEDS: SACUBITRIL/VALSARTAN (24mg-26mg) TABLET PO ×2 (09:30→21:52)
[2018-08-20] MEDS: DULOXETINE 20 MG CAP DR PO ×2 (09:31→21:52)
[2018-08-20] MEDS: DILTIAZEM (CD) 180 MG CAP PO ×2 (09:31→21:52)
[2018-08-20] MEDS: LACTULOSE 30ML CUP PO (09:31)
[2018-08-20] MEDS: METOPROLOL 25 MG TAB PO ×2 (09:31→21:53)
[2018-08-20] MEDS: CHOLECALCIFEROL 2,000 UNIT CAP PO (09:32)
[2018-08-20] MEDS: SODIUM CHLORIDE 1 GM TAB PO (09:32)
[2018-08-20] MEDS: CYANOCOBALAMIN 500 MCG TAB PO (09:32)
[2018-08-20] MEDS: PRIMIDONE 50 MG TAB PO ×3 (09:32→21:52)
[2018-08-20] MEDS: GUAIFENESIN LA 600 MG TABSR PO ×2 (09:32→21:53)
[2018-08-20] MEDS: CHOLECALCIFEROL 1,000 UNIT TAB PO (09:32)
[2018-08-20] MEDS: ROFLUMILAST 500 MCG TABLET PO (09:33)
[2018-08-20] MEDS: DOCUSATE SODIUM 100 MG CAP PO ×2 (09:33→21:53)
[2018-08-20] MEDS: METHYLPREDNISOLONE 40 MG INJ IV ×2 (09:33→21:51)
[2018-08-20] MEDS: FUROSEMIDE 20 MG INJ IV (09:34)
[2018-08-20] MEDS: MICONAZOLE 2% 30 GM CR TOP ×2 (09:34→21:51)
[2018-08-20 09:42] LABS: ANISOCYTOSIS 1+ (0-0); BAND NEUTROPHILS #M 1.1 10^3/ul (0.0-0.6); BAND NEUTROPHILS % (M) 10 % (0-4); LYMPHOCYTES #M 0.3 10^3/ul (0.8-2.9); LYMPHOCYTES % (M) 3 % (15-51); METAMYELOCYTES #M 0.2 10^3/ul (0.0-0.0); METAMYELOCYTES %M 2 % (0-0); MICROCYTOSIS 1+ (0-0); MONOCYTE #M 0.3 10^3/ul (0.3-0.9); MONOCYTES % (M) 3 % (0-11); MYELOCYTES #M 0.4 10^3/ul (0.0-0.0); MYELOCYTES % (M) 4 % (0-0); OVALOCYTES 1+ (0-0); PLATELET ESTIMATE NORMAL; POIKILOCYTOSIS 1+ (0-0); POLYCHROMASIA 1+ (0-0); PROMYELOCYTES #M 0.1 10^3/ul (0-0); PROMYELOCYTES % (M) 1 % (0-0); SEG NEUT #M 9.1 10^3/ul (1.6-7.5); SEGMENTED NEUTROPHILS (M) % 77 % (39-77); SMUDGE%M 3 % (0-0)
[2018-08-20] MEDS: CEFEPIME 1GM/50 ML (PMX) 50 ML IVPB ×2 (09:48→21:51)
[2018-08-20] MEDS: ALBUTEROL/IPRATROPIUM (NEB) 3 ML AMP HHN ×4 (09:54→21:15)
[2018-08-20] MEDS: DIGOXIN 0.125 MG TAB PO (13:44)
[2018-08-20] MEDS: RIVAROXABAN 15 MG TABLET PO (18:06)
[2018-08-20] MEDS: CALCIUM CARBONATE 500 MG CHEW TAB PO (21:51)
[2018-08-20] MEDS: DONEPEZIL 10 MG TAB PO (21:52)
[2018-08-20] MEDS: MELATONIN 3 MG TABLET PO (21:53)
[2018-08-20] MEDS: ATORVASTATIN 10 MG TAB PO (21:53)
[2018-08-21] MEDS: ARTIFICIAL TEARS 15 ML OPH BOTH EYES ×3 (06:48→22:07)
[2018-08-21] MEDS: PANTOPRAZOLE (EC) 40 MG TAB PO (06:49)
[2018-08-21] MEDS: LEVOTHYROXINE 50 MCG TAB PO (06:49)
[2018-08-21] MEDS: morphine LIQ (10 MG/5 ML) CUP PO (07:01)
[2018-08-21] MEDS: ALBUTEROL/IPRATROPIUM (NEB) 3 ML AMP HHN ×4 (07:39→21:06)
[2018-08-21 07:41] LABS: WHITE BLOOD COUNT 11.3 10^3/ul (4.8-10.8)
[2018-08-21 07:41] LABS: ABNORMAL IP MESSAGE 1; HEMATOCRIT 31.1 % (37.0-47.0); HEMOGLOBIN 10.1 g/dl (12.0-16.0); MEAN CORPUSCULAR HEMOGLOBIN 27.5 pg (29.0-33.0); MEAN CORPUSCULAR HGB CONC 32.5 g/dl (32.0-37.0); MEAN CORPUSCULAR VOLUME 84.7 fl (82.0-101.0); MEAN PLATELET VOLUME 8.8 fl (7.4-10.4); NUCLEATED RED BLOOD CELLS% 0.3 /100WBC (0.0-0.0); PLATELET COUNT 135 10^3/UL (140-415); RED BLOOD COUNT 3.67 10^6/ul (4.20-5.40); RED CELL DISTRIBUTION WIDTH 25.5 % (11.5-14.5)
[2018-08-21 07:49] LABS: POSITIVE DIFF @See below
[2018-08-21 07:52] LABS: ADD MAN DIFF? YES
[2018-08-21] MEDS: metFORMIN 500 MG TAB PO ×2 (08:07→17:29)
[2018-08-21] MEDS: LINAGLIPTIN 5 MG TABLET PO (08:07)
[2018-08-21 08:12] LABS: ANION GAP 4 (5-13); BLOOD UREA NITROGEN 40 mg/dl (7-20); CALCIUM 9.1 mg/dl (8.4-10.2); CARBON DIOXIDE 34 mmol/L (21-31); CHLORIDE 100 mmol/L (97-110); CREATININE 0.94 mg/dl (0.44-1.00); GLUCOSE 103 mg/dl (70-220); SODIUM 138 mmol/L (135-144)
[2018-08-21] MEDS: ROFLUMILAST 500 MCG TABLET PO ×2 (09:00→12:38)
[2018-08-21] MEDS: METHYLPREDNISOLONE 40 MG INJ IV ×2 (09:32→22:07)
[2018-08-21 09:33] LABS: ANISOCYTOSIS 2+ (0-0); BAND NEUTROPHILS #M 1.1 10^3/ul (0.0-0.6); BAND NEUTROPHILS % (M) 10 % (0-4); EOSINOPHILS % (M) 1 % (0-7); ERYTHROBLAST% (NRBC) (M) 2 % (0-0); HYPOCHROMASIA 1+ (0-0); LYMPHOCYTES #M 0.4 10^3/ul (0.8-2.9); LYMPHOCYTES % (M) 4 % (15-51); METAMYELOCYTES #M 0.5 10^3/ul (0.0-0.0); METAMYELOCYTES %M 5 % (0-0); MICROCYTOSIS 1+ (0-0); MONOCYTE #M 0.2 10^3/ul (0.3-0.9); MONOCYTES % (M) 2 % (0-11); MYELOCYTES #M 0.3 10^3/ul (0.0-0.0); MYELOCYTES % (M) 3 % (0-0); OVALOCYTES 1+ (0-0); PLATELET ESTIMATE DECREASED; POIKILOCYTOSIS 1+ (0-0); POLYCHROMASIA 2+ (0-0); PROMYELOCYTES #M 0.2 10^3/ul (0-0); PROMYELOCYTES % (M) 2 % (0-0); SCHISTOCYTES 1+ (0-0); SEG NEUT #M 8.4 10^3/ul (1.6-7.5); SEGMENTED NEUTROPHILS (M) % 73 % (39-77); SMUDGE%M 5 % (0-0)
[2018-08-21] MEDS: CHOLECALCIFEROL 2,000 UNIT CAP PO (09:33)
[2018-08-21] MEDS: FUROSEMIDE 20 MG INJ IV (09:33)
[2018-08-21] MEDS: CHOLECALCIFEROL 1,000 UNIT TAB PO (09:33)
[2018-08-21] MEDS: SACUBITRIL/VALSARTAN (24mg-26mg) TABLET PO ×2 (09:33→22:08)
[2018-08-21] MEDS: LACTULOSE 30ML CUP PO (09:33)
[2018-08-21] MEDS: DULOXETINE 20 MG CAP DR PO ×2 (09:34→23:00)
[2018-08-21] MEDS: DOCUSATE SODIUM 100 MG CAP PO ×2 (09:34→22:09)
[2018-08-21] MEDS: PRIMIDONE 50 MG TAB PO ×3 (09:34→22:08)
[2018-08-21] MEDS: METOPROLOL 25 MG TAB PO ×2 (09:35→22:10)
[2018-08-21] MEDS: GUAIFENESIN LA 600 MG TABSR PO ×2 (09:35→22:09)
[2018-08-21] MEDS: DILTIAZEM (CD) 180 MG CAP PO ×2 (09:35→22:10)
[2018-08-21] MEDS: CEFEPIME 1GM/50 ML (PMX) 50 ML IVPB ×2 (09:36→22:04)
[2018-08-21] MEDS: MICONAZOLE 2% 30 GM CR TOP ×2 (09:38→22:02)
[2018-08-21] MEDS: DIGOXIN 0.125 MG TAB PO (12:38)
[2018-08-21] MEDS ORDERED: HYDROCODONE/APAP (5/325) TAB PO (14:30)
[2018-08-21] MEDS ORDERED: LORAZEPAM 0.5 MG TAB PO (14:30)
[2018-08-21] MEDS: RIVAROXABAN 15 MG TABLET PO (17:27)
[2018-08-21] MEDS: MEGESTROL 40 MG TAB PO ×2 (17:28→22:09)
[2018-08-21] MEDS: MELATONIN 3 MG TABLET PO (22:08)
[2018-08-21] MEDS: CALCIUM CARBONATE 500 MG CHEW TAB PO (22:08)
[2018-08-21] MEDS: DONEPEZIL 10 MG TAB PO (22:08)
[2018-08-21] MEDS: ATORVASTATIN 10 MG TAB PO (22:09)
[2018-08-22] MEDS: ARTIFICIAL TEARS 15 ML OPH BOTH EYES ×3 (06:43→21:03)
[2018-08-22] MEDS: LEVOTHYROXINE 50 MCG TAB PO (06:43)
[2018-08-22] MEDS: PANTOPRAZOLE (EC) 40 MG TAB PO (06:43)
[2018-08-22] MEDS: metFORMIN 500 MG TAB PO ×2 (07:55→17:31)
[2018-08-22] MEDS: LINAGLIPTIN 5 MG TABLET PO (07:55)
[2018-08-22] MEDS: ALBUTEROL/IPRATROPIUM (NEB) 3 ML AMP HHN ×5 (08:14→22:47)
[2018-08-22] MEDS: FUROSEMIDE 20 MG INJ IV (09:20)
[2018-08-22] MEDS: LACTULOSE 30ML CUP PO (09:20)
[2018-08-22] MEDS: CHOLECALCIFEROL 2,000 UNIT CAP PO (09:20)
[2018-08-22] MEDS: SACUBITRIL/VALSARTAN (24mg-26mg) TABLET PO ×2 (09:21→20:58)
[2018-08-22] MEDS: MEGESTROL 40 MG TAB PO ×4 (09:21→21:00)
[2018-08-22] MEDS: PRIMIDONE 50 MG TAB PO ×3 (09:21→21:00)
[2018-08-22] MEDS: CYANOCOBALAMIN 500 MCG TAB PO (09:21)
[2018-08-22] MEDS: CHOLECALCIFEROL 1,000 UNIT TAB PO (09:22)
[2018-08-22] MEDS: DULOXETINE 20 MG CAP DR PO ×2 (09:22→20:58)
[2018-08-22] MEDS: GUAIFENESIN LA 600 MG TABSR PO ×2 (09:22→20:58)
[2018-08-22] MEDS: ROFLUMILAST 500 MCG TABLET PO (09:22)
[2018-08-22] MEDS: DOCUSATE SODIUM 100 MG CAP PO ×2 (09:22→20:58)
[2018-08-22] MEDS: DILTIAZEM (CD) 180 MG CAP PO ×2 (09:23→20:59)
[2018-08-22] MEDS: METOPROLOL 25 MG TAB PO ×2 (09:23→20:59)
[2018-08-22] MEDS: MICONAZOLE 2% 30 GM CR TOP ×2 (09:24→21:01)
[2018-08-22] MEDS: CEFEPIME 1GM/50 ML (PMX) 50 ML IVPB ×2 (11:03→20:56)
[2018-08-22] MEDS: METHYLPREDNISOLONE 40 MG INJ IV ×2 (11:03→20:56)
[2018-08-22] MEDS: DIGOXIN 0.125 MG TAB PO (12:26)
[2018-08-22] MEDS: RIVAROXABAN 15 MG TABLET PO (17:31)
[2018-08-22] MEDS: ATORVASTATIN 10 MG TAB PO (20:58)
[2018-08-22] MEDS: CALCIUM CARBONATE 500 MG CHEW TAB PO (20:58)
[2018-08-22] MEDS: MELATONIN 3 MG TABLET PO (20:59)
[2018-08-22] MEDS: DONEPEZIL 10 MG TAB PO (20:59)
[2018-08-22] MEDS: ALPRAZOLAM 0.25 MG TAB PO (22:46)
[2018-08-23] MEDS: DIPHENHYDRAMINE 50 MG CAP PO (04:04)
[2018-08-23] MEDS: ALBUTEROL/IPRATROPIUM (NEB) 3 ML AMP HHN ×5 (04:07→21:12)
[2018-08-23] MEDS: LEVOTHYROXINE 50 MCG TAB PO (06:20)
[2018-08-23] MEDS: ARTIFICIAL TEARS 15 ML OPH BOTH EYES ×3 (06:20→21:45)
[2018-08-23] MEDS: PANTOPRAZOLE (EC) 40 MG TAB PO (06:20)
[2018-08-23 07:23] LABS: ABNORMAL IP MESSAGE 1; HEMATOCRIT 31.4 % (37.0-47.0); HEMOGLOBIN 10.3 g/dl (12.0-16.0); MEAN CORPUSCULAR HEMOGLOBIN 27.8 pg (29.0-33.0); MEAN CORPUSCULAR HGB CONC 32.8 g/dl (32.0-37.0); MEAN CORPUSCULAR VOLUME 84.9 fl (82.0-101.0); MEAN PLATELET VOLUME 9.6 fl (7.4-10.4); NUCLEATED RED BLOOD CELLS% 0.1 /100WBC (0.0-0.0); PLATELET COUNT 153 10^3/UL (140-415); RED CELL DISTRIBUTION WIDTH 25.5 % (11.5-14.5)
[2018-08-23 07:23] LABS: WHITE BLOOD COUNT 14.8 10^3/ul (4.8-10.8)
[2018-08-23 07:29] LABS: ADD MAN DIFF? YES; POSITIVE DIFF @See below
[2018-08-23 07:40] LABS: MAGNESIUM 2.2 mg/dl (1.7-2.5)
[2018-08-23 07:41] LABS: ANION GAP 3 (5-13); BLOOD UREA NITROGEN 35 mg/dl (7-20); CALCIUM 9.2 mg/dl (8.4-10.2); CARBON DIOXIDE 37 mmol/L (21-31); CHLORIDE 97 mmol/L (97-110); CREATININE 0.97 mg/dl (0.44-1.00); GLUCOSE 102 mg/dl (70-220); POTASSIUM 4.2 mmol/L (3.5-5.1); SODIUM 137 mmol/L (135-144)
[2018-08-23 08:26] LABS: ACANTHOCYTES 1+ (0-0); ANISOCYTOSIS 1+ (0-0); BAND NEUTROPHILS #M 0.2 10^3/ul (0.0-0.6); BAND NEUTROPHILS % (M) 2 % (0-4); BASOPHIL #M 0.1 10^3/ul (0.0-0.0); BASOPHILS % (M) 1 % (0-2); BURR CELLS 1+ (0-0); METAMYELOCYTES #M 0.1 10^3/ul (0.0-0.0); METAMYELOCYTES %M 1 % (0-0); MICROCYTOSIS 1+ (0-0); MYELOCYTES #M 0.2 10^3/ul (0.0-0.0); MYELOCYTES % (M) 2 % (0-0); OVALOCYTES 1+ (0-0); PLATELET ESTIMATE NORMAL; POIKILOCYTOSIS 1+ (0-0); POLYCHROMASIA 1+ (0-0); PROMYELOCYTES #M 0.1 10^3/ul (0-0); PROMYELOCYTES % (M) 1 % (0-0); REACTIVE LYMPHOCYTES #M 0.1 10^3/ul (0.0-0.0); REACTIVE LYMPHOCYTES% (M) 1 % (0-0); SEG NEUT #M 13.6 10^3/ul (1.6-7.5); SEGMENTED NEUTROPHILS (M) % 92 % (39-77); SMUDGE%M 2 % (0-0); STOMATOCYTES 1+ (0-0)
[2018-08-23] MEDS: GUAIFENESIN LA 600 MG TABSR PO ×2 (09:00→21:21)
[2018-08-23] MEDS: metFORMIN 500 MG TAB PO ×2 (09:03→17:57)
[2018-08-23] MEDS: METHYLPREDNISOLONE 40 MG INJ IV ×2 (09:03→21:20)
[2018-08-23] MEDS: CEFEPIME 1GM/50 ML (PMX) 50 ML IVPB ×2 (09:04→21:19)
[2018-08-23] MEDS: CHOLECALCIFEROL 2,000 UNIT CAP PO (09:10)
[2018-08-23] MEDS: CHOLECALCIFEROL 1,000 UNIT TAB PO (09:10)
[2018-08-23] MEDS: ROFLUMILAST 500 MCG TABLET PO (09:10)
[2018-08-23] MEDS: LINAGLIPTIN 5 MG TABLET PO (09:10)
[2018-08-23] MEDS: DULOXETINE 20 MG CAP DR PO ×2 (09:10→21:22)
[2018-08-23] MEDS: MEGESTROL 40 MG TAB PO ×4 (09:10→21:21)
[2018-08-23] MEDS: SACUBITRIL/VALSARTAN (24mg-26mg) TABLET PO ×2 (09:14→21:22)
[2018-08-23] MEDS: MICONAZOLE 2% 30 GM CR TOP ×2 (09:14→21:27)
[2018-08-23] MEDS: METOPROLOL 25 MG TAB PO ×2 (09:15→21:25)
[2018-08-23] MEDS: LACTULOSE 30ML CUP PO (09:15)
[2018-08-23] MEDS: FUROSEMIDE 40 MG TAB PO (09:16)
[2018-08-23] MEDS: DOCUSATE SODIUM 100 MG CAP PO ×2 (09:17→21:22)
[2018-08-23] MEDS: DILTIAZEM (CD) 180 MG CAP PO ×2 (09:17→21:26)
[2018-08-23] MEDS: PRIMIDONE 50 MG TAB PO ×3 (09:17→21:22)
[2018-08-23] MEDS: SODIUM CHLORIDE 1 GM TAB PO (09:34)
[2018-08-23] MEDS: DIGOXIN 0.125 MG TAB PO (14:19)
[2018-08-23] MEDS: RIVAROXABAN 15 MG TABLET PO (17:57)
[2018-08-23] MEDS: BALSAM PERU/CASTOR OIL 60 GM TUBE TOP ×2 (17:57→21:27)
[2018-08-23] MEDS: DONEPEZIL 10 MG TAB PO (21:21)
[2018-08-23] MEDS: CALCIUM CARBONATE 500 MG CHEW TAB PO (21:22)
[2018-08-23] MEDS: ATORVASTATIN 10 MG TAB PO (21:22)
[2018-08-23] MEDS: MELATONIN 3 MG TABLET PO (21:22)
[2018-08-24] MEDS: ALPRAZOLAM 0.25 MG TAB PO ×2 (00:37→13:29)
[2018-08-24] MEDS: ACETAMINOPHEN 325 MG TAB PO (00:37)
[2018-08-24] MEDS: LEVOTHYROXINE 50 MCG TAB PO (06:18)
[2018-08-24] MEDS: PANTOPRAZOLE (EC) 40 MG TAB PO (06:18)
[2018-08-24] MEDS: ARTIFICIAL TEARS 15 ML OPH BOTH EYES ×2 (06:18→13:29)
[2018-08-24] MEDS: metFORMIN 500 MG TAB PO (08:11)
[2018-08-24] MEDS: LINAGLIPTIN 5 MG TABLET PO (08:23)
[2018-08-24] MEDS: METHYLPREDNISOLONE 40 MG INJ IV (08:23)
[2018-08-24] MEDS: CEFEPIME 1GM/50 ML (PMX) 50 ML IVPB (08:23)
[2018-08-24] MEDS: LACTULOSE 30ML CUP PO (08:25)
[2018-08-24] MEDS: CHOLECALCIFEROL 1,000 UNIT TAB PO (08:26)
[2018-08-24] MEDS: ROFLUMILAST 500 MCG TABLET PO (08:26)
[2018-08-24] MEDS: DULOXETINE 20 MG CAP DR PO (08:26)
[2018-08-24] MEDS: CHOLECALCIFEROL 2,000 UNIT CAP PO (08:26)
[2018-08-24] MEDS: SACUBITRIL/VALSARTAN (24mg-26mg) TABLET PO (08:26)
[2018-08-24] MEDS: PRIMIDONE 50 MG TAB PO ×2 (08:26→13:06)
[2018-08-24] MEDS: MEGESTROL 40 MG TAB PO ×2 (08:26→13:06)
[2018-08-24] MEDS: DOCUSATE SODIUM 100 MG CAP PO (08:27)
[2018-08-24] MEDS: GUAIFENESIN LA 600 MG TABSR PO (08:27)
[2018-08-24] MEDS: METOPROLOL 25 MG TAB PO (08:27)
[2018-08-24] MEDS: DILTIAZEM (CD) 180 MG CAP PO (08:28)
[2018-08-24] MEDS: FUROSEMIDE 40 MG TAB PO (08:28)
[2018-08-24] MEDS: BALSAM PERU/CASTOR OIL 60 GM TUBE TOP (08:29)
[2018-08-24] MEDS: MICONAZOLE 2% 30 GM CR TOP (08:30)
[2018-08-24] MEDS: CYANOCOBALAMIN 500 MCG TAB PO (08:52)
[2018-08-24] MEDS: ALBUTEROL/IPRATROPIUM (NEB) 3 ML AMP HHN ×2 (09:00→12:04)
[2018-08-24] MEDS: DIGOXIN 0.125 MG TAB PO (13:05)
[2018-08-25] MEDS ORDERED: predniSONE 10 MG TAB PO (09:00)
[2018-08-28] MEDS ORDERED: predniSONE 20 MG TAB PO (09:00)
[2018-08-31] MEDS ORDERED: predniSONE 10 MG TAB PO (09:00)
== END 2018-08-24 14:50 | DRG 91 ==
LOC: VRC 22:56
PROC: F07Z5ZZ Bed Mobility Treatment (ICD-10-PCS; principal; 2018-08-10)
PROC: F07Z8ZZ Transfer Training Treatment (ICD-10-PCS; 2018-08-10)
PROC: F07Z9ZZ Gait Training/Functional Ambulation Treatment (ICD-10-PCS; 2018-08-10)
PROC: F08Z2ZZ Grooming/Personal Hygiene Treatment (ICD-10-PCS; 2018-08-10)
PROC: F08Z1ZZ Dressing Techniques Treatment (ICD-10-PCS; 2018-08-10)
PROC: F08Z0ZZ Bathing/Showering Techniques Treatment (ICD-10-PCS; 2018-08-10)
DX: G72.81 Critical illness myopathy (principal); I50.33 Acute on chronic diastolic (congestive) heart failure; I13.0 Hypertensive heart and chronic kidney disease with heart failure and stage 1 through stage 4 chronic kidney disease, or unspecified chronic kidney disease; F33.1 Major depressive disorder, recurrent, moderate; J98.11 Atelectasis; Z74.09 Other reduced mobility; R53.81 Other malaise; D63.8 Anemia in other chronic diseases classified elsewhere; E11.649 Type 2 diabetes mellitus with hypoglycemia without coma; E11.22 Type 2 diabetes mellitus with diabetic chronic kidney disease; E78.5 Hyperlipidemia, unspecified; E03.9 Hypothyroidism, unspecified; F03.90 Unspecified dementia, unspecified severity, without behavioral disturbance, psychotic disturbance, mood disturbance, and anxiety; G89.29 Other chronic pain; H11.30 Conjunctival hemorrhage, unspecified eye; I48.2 Chronic atrial fibrillation; I25.10 Atherosclerotic heart disease of native coronary artery without angina pectoris; I65.29 Occlusion and stenosis of unspecified carotid artery; J06.9 Acute upper respiratory infection, unspecified; J44.9 Chronic obstructive pulmonary disease, unspecified; M54.5 Low back pain; N18.9 Chronic kidney disease, unspecified; Z87.891 Personal history of nicotine dependence; Z95.5 Presence of coronary angioplasty implant and graft; Z79.82 Long term (current) use of aspirin
CPT/HCPCS: 71045; 71250; 80048; 80053; 81001; 81003; 82962; 83735; 83880; 84100; 84439; 84443; 84481; 85025; 87081; 87086; 94640; 94664; 97110; 97112; 97116; 97163; 97167; 97530; 97535; 97542